=== PATIENT | female | born 1980 ===

== ENCOUNTER 2018-01-05 09:03 | Emergency (ER) | payer BC, OTHER ==
[2018-01-05 09:37] VITALS: BP 112/69
--- NOTE | 2018-01-05 09:56 | UC ---
Complaint Female HPI - HPI Summary HPI Summary: urinary burning and frequency x 1 week no fever, no chills, no flank pain - History Of Current Complaint Chief Complaint: UCGU Stated Complaint: URINARY Time Seen by Provider: 01/05/18 09:36 Hx Obtained From: Patient Hx Last Menstrual Period: 12/28/17 ?: No Onset/Duration: Gradual Onset, Lasting Days - 7, Still Present Timing: Constant Severity Initially: Moderate Severity Currently: Moderate Pain Intensity: 0 Character: Burning Aggravating Factor(s): Urination Alleviating Factor(s): Nothing Associated Signs And Symptoms: Negative: Fever, Back Pain, Vaginal Bleeding/ Discharge, Vaginal Discharge, Nausea, Vomiting(# Of Episodes =), Genital Swelling, Genital Blisters - Allergies/Home Medications Allergies/Adverse Reactions: Allergies Allergy/AdvReac Type Severity Reaction Status Date / Time morphine Allergy Severe Vomiting Verified 01/05/18 09:31 Home Medications: Home Medications Levothyroxine TAB* [Synthroid TAB*] 25 mcg PO DAILY 01/05/18 [History Confirmed 01/05/18] ValACYclovir (*) [Valtrex 500 mg (*)] 1 tab DAILY PRN 01/05/18 [History Confirmed 01/05/18] PMH/Surg Hx/FS Hx/Imm Hx Previously Healthy: Yes - Surgical History Surgical History: Yes Surgery Procedure, Year, and Place: x2. Bunionectomy - Family History Known Family History: Negative: Diabetes - Social History Alcohol Use: Occasionally Substance Use Type: None Smoking Status (MU): Never Smoked Tobacco Review of Systems Constitutional: Negative Skin: Negative Eyes: Negative ENT: Negative Respiratory: Negative Gastrointestinal: Negative Genitourinary: Dysuria, Frequency Is Patient Immunocompromised?: No All Other Systems Reviewed And Are Negative: Yes Physical Exam Triage Information Reviewed: Yes Appearance: Well-Appearing, No Pain Distress, Well-Nourished Vital Signs: Initial Vital Signs Temp 98.3 F 01/05/18 09:33 Pulse 69 01/05/18 09:33 Resp 16 01/05/18 09:33 BP 112/69 01/05/18 09:33 Pulse Ox 100 01/05/18 09:33 Vital Signs Reviewed: Yes Eyes: Positive: Conjunctiva Clear ENT: Positive: Normal ENT inspection, Hearing grossly normal, Pharynx normal Neck exam: Normal Neck: Positive: Supple, Nontender, No Lymphadenopathy Respiratory: Positive: Chest non-tender, Lungs clear, Normal breath sounds Cardiovascular: Positive: RRR, No Murmur, Pulses Normal Abdominal Exam: Normal Abdomen Description: Positive: Nontender, Soft. Negative: CVA Tenderness (R), CVA Tenderness (L), Distended, Guarding Bowel Sounds: Positive: Present Complaint Female Dx - Differential Dx/Diagnosis Provider Diagnoses: UTI Discharge - Sign-Out/Discharge Documenting (check all that apply): Discharge/Admit/Transfer - Discharge Plan Condition: Stable Disposition: HOME Prescriptions: Sulfamethox/Trimethoprim DS* [Bactrim DS 800/160 TAB*] 1 tab PO BID #14 tab Patient Education Materials: Urinary Tract Infection in Women (ED) Referrals: No Primary Care Phys,NOPCP [Primary Care Provider] - If Needed - Billing Disposition and Condition Condition: STABLE Disposition: Home
--- NOTE | 2018-01-06 11:15 | UC ---
- Progress Note Progress Note: Patient called today, developed urticaria after 2 doses of bactrim. Advised to discontinue this. Although UA not impressive, she would like to start a new antibiotic pending culture. Will use banadryl 25 to 50 mg as needed for hives. Curently in [place]. Discharge - Sign-Out/Discharge Documenting (check all that apply): Discharge/Admit/Transfer - Discharge Plan Condition: Stable Disposition: HOME Prescriptions: Nitrofurantoin Macrocrystal [Nitrofurantoin] 100 mg PO BID #14 capsule Patient Education Materials: Urinary Tract Infection in Women (ED) Referrals: No Primary Care Phys,NOPCP [Primary Care Provider] - If Needed - Billing Disposition and Condition Condition: STABLE Disposition: Home
--- NOTE | 2018-01-07 07:22 | UC ---
- Progress Note Progress Note: notify pt NO UTI stop antibiotic recheck if still symptomatic Discharge - Sign-Out/Discharge Documenting (check all that apply): Post-Discharge Follow Up - Discharge Plan Condition: Stable Disposition: HOME Prescriptions: Nitrofurantoin Macrocrystal [Nitrofurantoin] 100 mg PO BID #14 capsule Patient Education Materials: Urinary Tract Infection in Women (ED) Referrals: No Primary Care Phys,NOPCP [Primary Care Provider] - If Needed - Billing Disposition and Condition Condition: STABLE Disposition: Home
== END 2018-01-05 10:00 | disposition home or self-care (01) ==
LOC: UCCORT 09:03
DX: N39.0 Urinary tract infection, site not specified (principal); Z88.5 Allergy status to narcotic agent
CPT/HCPCS: 81003; 87086; 99202; G0463